=== PATIENT | male | born 1965 | race Hispanic/Latino ===

== ENCOUNTER 2021-01-02 16:11 | Emergency (ER) | payer MEDICARE ==
[~2021-01-02] VITALS: Ht 167.6 cm; Wt 73.5 kg
--- NOTE | 2021-01-04 13:22 | EKG ---
[facility] [address] [facility] [place], [place] [address] Signed Normal sinus rhythm Normal ECG No previous ECGs available Confirmed by SENA HARKINS MD ([id number] on 01/04/2021 1:22:16 PM Electronically Signed By: SENA HARKINS MD 01/04/21 1322 PATIENT NAME: CHRISTIANO DAVIS KERBY Electrocardiogram DATE OF : 67 PHYSICIAN: SENA HARKINS MD REPORT #: [id number] REPORT IS CONFIDENTIAL AND NOT TO BE RELEASED WITHOUT AUTHORIZATION
== END 2021-01-02 19:39 | disposition home or self-care (01) ==
LOC: ED 16:11
DX: R07.89 Other chest pain (principal); Z87.891 Personal history of nicotine dependence
CPT/HCPCS: 71045; 80053; 83735; 84484; 85025; 93005; 93010; 99285-25